=== PATIENT | female | born 1950 | race Caucasian/White ===

== ENCOUNTER → 2021-04-08 00:55 | Outpatient (CLI) | payer MEDICARE, SELFPAY ==
[2021-04-08 17:11] LABS: SARS-CoV-2 RNA PCR Negative
== END ==
PROVIDERS: PCP Family Medicine; Visit Provider Family Medicine
DX: R05.9 Cough, unspecified (principal); Z20.822 Contact with and (suspected) exposure to COVID-19
CPT/HCPCS: C9803; U0003; U0005

== ENCOUNTER 2022-12-31 13:57 | Outpatient (CLI) | payer MEDICARE, OTHER, SELFPAY ==
--- NOTE | ~2022-12-31 | US_ITS ---
EXAMINATION: US pelvic complete w TV DATE: 12/31/2022 15:47 INDICATION: Postmenopausal bleeding Comparison:No prior studies TECHNIQUE: Multiple transabdominal and endovaginal sonographic images of the pelvis performed. FINDINGS: The uterus measures 6.2 x 3.4 x 1.7 cm. There is trace fluid in the endometrium. There are there are nabothian cysts. The endometrial complex measures 3 mm. The right ovary measures 2.7 x 2.3 x 2.1 cm and the left ovary measures 3.3 x 1.8 x 1.9 cm. There is a right ovarian cyst measuring 2.2 cm There are small follicles in each ovary. Normal doppler signal in both ovaries. There is no free fluid in the pelvis. There are no abnormal masses seen on either side. IMPRESSION: 1. Septated right ovarian cyst measuring 2.2 cm. Reviewed, dictated and finalized at location L.
== END 2022-12-31 13:58 | disposition home or self-care (01) ==
PROVIDERS: PCP Family Medicine; Visit Provider Obstetrics & Gynecology
DX: N83.291 Other ovarian cyst, right side (principal); N95.0 Postmenopausal bleeding
CPT/HCPCS: 76830; 76856

== ENCOUNTER 2023-01-03 11:56 | Outpatient (CLI) | payer MEDICARE, OTHER, SELFPAY ==
[2023-01-08 07:18] LABS: CA-125 8 U/mL (<35)
== END 2023-01-03 11:57 | disposition home or self-care (01) ==
PROVIDERS: PCP Family Medicine; Visit Provider Obstetrics & Gynecology
DX: R19.09 Other intra-abdominal and pelvic swelling, mass and lump (principal); N83.201 Unspecified ovarian cyst, right side
CPT/HCPCS: 36415; 86304

== ENCOUNTER 2023-05-13 14:43 | Outpatient (CLI) | payer MEDICARE, OTHER, SELFPAY ==
--- NOTE | ~2023-05-13 | US_ITS ---
EXAMINATION: US pelvic complete w TV DATE: 05/13/2023 15:09 INDICATION: Unspecified ovarian cyst, unspecified side. TECHNIQUE: Multiple transabdominal and transvaginal sonographic images of the pelvis were obtained. COMPARISON: Ultrasound pelvis 12/31/2022 FINDINGS: TRANSABDOMINAL ULTRASOUND: The uterus measures 5.2 x 3.2 x 1.7 cm. There is no free fluid in the pelvis. TRANSVAGINAL ULTRASOUND: The endometrial complex measures 4 mm in thickness. The right ovary measures 3.0 x 2.6 x 2.9 cm. Ther e is normal vascular flow in right ovary. The left ovary is not visualized. IMPRESSION: 1. Normal right ovary. Left ovary not visualized. Reviewed, dictated and finalized at location E. [employer]
== END 2023-05-13 14:44 ==
LOC: GOSHIMG 14:44
PROVIDERS: PCP Family Medicine; Visit Provider Obstetrics & Gynecology
DX: N83.209 Unspecified ovarian cyst, unspecified side (principal)
CPT/HCPCS: 76830; 76856